=== PATIENT | female | born 1940 | race Caucasian/White ===

== ENCOUNTER 2017-06-22 16:53 | Inpatient (IN) | payer MEDICARE, OTHER ==
[~2017-06-22] VITALS: Ht 167.6 cm; Wt 84.0 kg
[~2017-06-22 16:53] MED LIST: ALBU2.5V12 NEB; BUDE10.2 IH; FURO-150 PO; GABA-338 PO; METF500T7 PO; MONT10TA21 PO; POTA8CAP9 PO; REPA0.5T PO; ROSU20TA PO; TIOT18CA7 IH
[2017-06-22] MEDS ORDERED: methylPREDNISolone sod succ 125mg/2ml vial IV ONE (17:05)
[2017-06-22] MEDS ORDERED: albuterol 2.5 MG/3 ML nebule NEB ONE (17:05)
[2017-06-22] MEDS ORDERED: normal saline 1000ML IV soln IV ONE (17:05)
[2017-06-22 17:41] LABS: BASOPHILS # (AUTO) 0.1 X10'3 (0-0.2); BASOPHILS % (AUTO) 0.4 % (0-1); EOSINOPHILS # (AUTO) 0.8 X10'3 (0-0.9); EOSINOPHILS % (AUTO) 5.4 % (0-6); HEMATOCRIT 41.1 % (35.0-45.0); HEMOGLOBIN 13.9 g/dl (12.0-16.0); LYMPHOCYTES # (AUTO) 2.5 X10'3 (1.1-4.8); LYMPHOCYTES % (AUTO) 16.3 % (21-51); MEAN CORPUSCULAR HEMOGLOBIN 30.5 PG (27.0-31.0); MEAN CORPUSCULAR HGB CONC 33.9 % (33.0-36.5); MEAN CORPUSCULAR VOLUME 89.9 FL (78-98); MEAN PLATELET VOLUME 8.1 FL (7.4-10.4); MONOCYTES # (AUTO) 2.2 X10'3 (0-0.9); MONOCYTES % (AUTO) 14.2 % (2-12); NEUTROPHILS # (AUTO) 9.7 X10'3 (1.8-7.7); NEUTROPHILS % (AUTO) 63.7 % (42-75); PLATELET COUNT 311 X10'3 (140-440); RED BLOOD COUNT 4.57 X10'6 (4.20-5.60); RED CELL DISTRIBUTION WIDTH 13.7 % (11.5-14.5); WHITE BLOOD COUNT 15.2 X10'3 (4.5-11.0)
[2017-06-22 17:56] LABS: ALANINE AMINOTRANSFERASE 31 U/L (12-78); ALBUMIN 3.4 G/DL (3.4-5.0); ALBUMIN/GLOBULIN RATIO 0.8 (1.1-1.5); ALKALINE PHOSPHATASE 111 IU/L (46-116); ANION GAP 3 (8-16); ASPARTATE AMINO TRANSFERASE 15 U/L (10-37); BILIRUBIN,TOTAL 0.6 MG/DL (0.1-1.0); BLOOD UREA NITROGEN 9 MG/DL (7-18); BUN/CREATININE RATIO 12.9 (6.6-38.0); CALCIUM 9.3 MG/DL (8.5-10.1); CHLORIDE 101 MMOL/L (99-107); GLUCOSE 93 MG/DL (70-104); POTASSIUM 3.8 MMOL/L (3.5-5.1); SODIUM 141 MMOL/L (135-145); TOTAL CARBON DIOXIDE 36.6 MMOL/L (24-32); TOTAL PROTEIN 7.7 G/DL (6.4-8.2); eGFR 81 ML/MIN
[2017-06-22] MEDS ORDERED: levoFLOXACIN-Levaquin 750MG/D5 150 ML IV ONE (18:35)
[2017-06-22] MEDS ORDERED: furosemide 10 MG/1 ML 10ml inj IV ONE (18:35)
[2017-06-22] MEDS ORDERED: morphine 2 MG/ML inj. syringe IV ONE (19:15)
[2017-06-22 20:17] LABS: CLARITY,URINE CLOUDY (Clear); COLOR,URINE YELLOW (Yellow); GLUCOSE, URINE NEGATIVE (Neg); KETONES,URINE NEGATIVE (Neg); LEUKOCYTE ESTERASE ,URINE LARGE (Neg); NITRITES, URINE NEGATIVE (Neg); OCCULT BLOOD,URINE NEGATIVE (Neg); PH,URINE 6.5 (4.8-8.0); PROTEIN,URINE NEGATIVE (Neg); UROBILINOGEN,URINE 0.2 E.U/dL (0.2-1.0)
[2017-06-22 20:19] LABS: UA COLLECTION TYPE CLN CATCH MIDSTREAM
[2017-06-22 20:32] LABS: BACTERIA,URINE 1+ /HPF (Neg); RENAL CELLS, URINE FEW /HPF; SQUAMOUS EPITHELIAL CELL,UR MODERATE /LPF (FEW); TRANSITIONAL EPI CELLS,URINE MODERATE /HPF
[2017-06-22 20:33] LABS: RBC,URINE 0-2 /HPF (0-2); WBC,URINE 20-30 /HPF (0-4)
[2017-06-22] MEDS ORDERED: ASPI-529 (20:45)
[2017-06-22] MEDS ORDERED: METF500T PO (20:52)
[2017-06-22] MEDS ORDERED: ATOR40TA PO (20:54)
[2017-06-22] MEDS ORDERED: temazepam 15mg capsule PO PRN (21:00)
[2017-06-22] MEDS ORDERED: acetaminophen 650mg rectal suppository RC PRN (21:20)
[2017-06-22] MEDS ORDERED: bisacodyl 10mg suppository rectal RC PRN (21:20)
[2017-06-22] MEDS ORDERED: diphenhydrAMINE 25mg capsule PO PRN (21:20)
[2017-06-22] MEDS ORDERED: ondansetron/PF 4mg/2ml inj IV PRN (21:20)
[2017-06-22] MEDS ORDERED: magnesium hydroxide 30ml (MOM) UD suspension PO PRN (21:20)
[2017-06-22] MEDS ORDERED: mag hydrox/Alum hydrox/simeth 30ml oral suspension PO PRN (21:20)
[2017-06-22] MEDS ORDERED: HYDROcodone/acetaminophen 10/325mg tab PO PRN (21:20)
[2017-06-22] MEDS ORDERED: acetaminophen 325mg tablet PO PRN (21:20)
[2017-06-22] MEDS ORDERED: morphine 2 MG/ML inj. syringe IV PRN ×2 (21:20)
[2017-06-22] MEDS ORDERED: diphenhydrAMINE 50 mg/ml inj IV PRN (21:20)
[2017-06-22] MEDS ORDERED: dextrose ORAL solution 15 GM/59 ML bottle PO PRN ×2 (21:25)
[2017-06-22] MEDS ORDERED: glucagon, human recombinant 1mg kit SUBCUT PRN (21:25)
[2017-06-22] MEDS ORDERED: dextrose 50%-water 50ml dispensing syringe IV PRN ×2 (21:25)
[2017-06-22] MEDS ORDERED: MESSAGE TO PHARMACY PO ONE (21:25)
[2017-06-22 21:42] LABS: HEMOGLOBIN A1C 7.3 % (4.5-6.2)
[2017-06-22 21:51] LABS: MAGNESIUM 1.7 MG/DL (1.5-2.4)
[2017-06-23 07:13] LABS: BASOPHILS % (AUTO) 0.3 % (0-1); EOSINOPHILS % (AUTO) 0 % (0-6); HEMATOCRIT 39.3 % (35.0-45.0); HEMOGLOBIN 13.3 g/dl (12.0-16.0); LYMPHOCYTES # (AUTO) 1.6 X10'3 (1.1-4.8); LYMPHOCYTES % (AUTO) 12.3 % (21-51); MEAN CORPUSCULAR HEMOGLOBIN 30.8 PG (27.0-31.0); MEAN CORPUSCULAR HGB CONC 33.9 % (33.0-36.5); MEAN CORPUSCULAR VOLUME 90.9 FL (78-98); MEAN PLATELET VOLUME 7.9 FL (7.4-10.4); MONOCYTES # (AUTO) 0.3 X10'3 (0-0.9); NEUTROPHILS # (AUTO) 11.4 X10'3 (1.8-7.7); NEUTROPHILS % (AUTO) 85.4 % (42-75); PLATELET COUNT 303 X10'3 (140-440); RED BLOOD COUNT 4.32 X10'6 (4.20-5.60); RED CELL DISTRIBUTION WIDTH 14.2 % (11.5-14.5); WHITE BLOOD COUNT 13.3 X10'3 (4.5-11.0)
[2017-06-23 07:31] LABS: ALANINE AMINOTRANSFERASE 28 U/L (12-78); ALBUMIN 2.9 G/DL (3.4-5.0); ALBUMIN/GLOBULIN RATIO 0.7 (1.1-1.5); ALKALINE PHOSPHATASE 96 IU/L (46-116); ANION GAP 6 (8-16); ASPARTATE AMINO TRANSFERASE 13 U/L (10-37); BILIRUBIN,TOTAL 0.4 MG/DL (0.1-1.0); BLOOD UREA NITROGEN 14 MG/DL (7-18); BUN/CREATININE RATIO 15.6 (6.6-38.0); CALCIUM 9.1 MG/DL (8.5-10.1); CHLORIDE 100 MMOL/L (99-107); GLUCOSE 202 MG/DL (70-104); POTASSIUM 4.4 MMOL/L (3.5-5.1); SODIUM 141 MMOL/L (135-145); TOTAL CARBON DIOXIDE 35.5 MMOL/L (24-32); eGFR 61 ML/MIN
[2017-06-23] MEDS ORDERED: methylPREDNISolone sod succ 125mg/2ml vial IV ONE (08:00)
[2017-06-23] MEDS ORDERED: non-formulary drug (Aspirin (Baby Aspirin) 1 TAB) PO SCH (08:00)
[2017-06-23] MEDS ORDERED: non-formulary drug (Atorvastatin Calcium* (Lipitor*) 1 TABLET) PO SCH (08:00)
[2017-06-23] MEDS ORDERED: furosemide 10 MG/1 ML 10ml inj IV ONE (08:00)
[2017-06-23] MEDS: levoFLOXACIN-Levaquin 750MG/D5 150 ML IV SCH (09:45)
[2017-06-23] MEDS: gabapentin 300mg capsule PO SCH ×3 (09:48→21:22)
[2017-06-23] MEDS: aspirin 81mg tab.chew PO SCH (09:48)
[2017-06-23] MEDS: atorvastatin 20mg tablet PO SCH (09:49)
[2017-06-23] MEDS: pantoprazole 40mg Tablet.DR PO SCH (09:49)
[2017-06-23] MEDS: heparin, porcine 5000 units/ml vial SQ SCH ×2 (09:51→19:49)
[2017-06-23] MEDS: docusate sod 100mg capsule PO SCH ×2 (09:52→19:47)
[2017-06-23] MEDS: montelukast 10mg tablet PO SCH (09:52)
[2017-06-23 10:00] VITALS: BP 127/68
[2017-06-23] MEDS: HYDROcodone/acetaminophen 5mg/325mg tablet PO PRN (10:07)
[2017-06-23] MEDS ORDERED: albuterol 2.5 MG/3 ML nebule NEB PRN (10:35)
[2017-06-23 14:20] VITALS: BP 116/59
[2017-06-23 14:30] VITALS: BP 109/51
[2017-06-23] MEDS: insulin Lispro (HumaLOG) vial - multi-dose SQ SCH ×2 (15:09→19:55)
[2017-06-23 20:00] VITALS: BP 125/64
[2017-06-24] VITALS: BP 123/60
[2017-06-24 05:49] LABS: BASOPHILS % (AUTO) 0.1 % (0-1); EOSINOPHILS # (AUTO) 0.1 X10'3 (0-0.9); EOSINOPHILS % (AUTO) 0.6 % (0-6); HEMATOCRIT 37.6 % (35.0-45.0); HEMOGLOBIN 12.7 g/dl (12.0-16.0); LYMPHOCYTES # (AUTO) 2.3 X10'3 (1.1-4.8); LYMPHOCYTES % (AUTO) 12.5 % (21-51); MEAN CORPUSCULAR HEMOGLOBIN 30.6 PG (27.0-31.0); MEAN CORPUSCULAR HGB CONC 33.7 % (33.0-36.5); MEAN CORPUSCULAR VOLUME 90.7 FL (78-98); MEAN PLATELET VOLUME 8.3 FL (7.4-10.4); MONOCYTES # (AUTO) 1.9 X10'3 (0-0.9); MONOCYTES % (AUTO) 10.3 % (2-12); NEUTROPHILS # (AUTO) 13.9 X10'3 (1.8-7.7); NEUTROPHILS % (AUTO) 76.5 % (42-75); PLATELET COUNT 303 X10'3 (140-440); RED BLOOD COUNT 4.15 X10'6 (4.20-5.60); RED CELL DISTRIBUTION WIDTH 13.8 % (11.5-14.5); WHITE BLOOD COUNT 18.2 X10'3 (4.5-11.0)
[2017-06-24 06:33] LABS: ALANINE AMINOTRANSFERASE 24 U/L (12-78); ALBUMIN 2.9 G/DL (3.4-5.0); ALBUMIN/GLOBULIN RATIO 0.7 (1.1-1.5); ALKALINE PHOSPHATASE 89 IU/L (46-116); ANION GAP 4 (8-16); ASPARTATE AMINO TRANSFERASE 11 U/L (10-37); BILIRUBIN,TOTAL 0.3 MG/DL (0.1-1.0); BLOOD UREA NITROGEN 21 MG/DL (7-18); BUN/CREATININE RATIO 23.3 (6.6-38.0); CALCIUM 9.1 MG/DL (8.5-10.1); CHLORIDE 101 MMOL/L (99-107); GLUCOSE 175 MG/DL (70-104); POTASSIUM 4.2 MMOL/L (3.5-5.1); SODIUM 139 MMOL/L (135-145); TOTAL CARBON DIOXIDE 34.4 MMOL/L (24-32); TOTAL PROTEIN 6.8 G/DL (6.4-8.2); eGFR 61 ML/MIN
[2017-06-24 08:00] VITALS: BP 140/77
[2017-06-24] MEDS: levoFLOXACIN-Levaquin 750MG/D5 150 ML IV SCH (09:23)
[2017-06-24] MEDS: montelukast 10mg tablet PO SCH (09:24)
[2017-06-24] MEDS: gabapentin 300mg capsule PO SCH ×3 (09:24→21:15)
[2017-06-24] MEDS: heparin, porcine 5000 units/ml vial SQ SCH ×2 (09:24→19:51)
[2017-06-24] MEDS: docusate sod 100mg capsule PO SCH ×2 (09:25→19:51)
[2017-06-24] MEDS: atorvastatin 20mg tablet PO SCH (09:25)
[2017-06-24] MEDS: aspirin 81mg tab.chew PO SCH (09:26)
[2017-06-24] MEDS: pantoprazole 40mg Tablet.DR PO SCH (09:26)
[2017-06-24] MEDS: insulin Lispro (HumaLOG) vial - multi-dose SQ SCH ×3 (09:31→19:49)
[2017-06-24 11:00] VITALS: BP 108/69
[2017-06-24] MEDS: lactobacillus rhamnosus 10,000 MMU CELLS/CAPSULE PO SCH (16:53)
[2017-06-24 20:00] VITALS: BP 109/55
[2017-06-24] MEDS: HYDROcodone/acetaminophen 5mg/325mg tablet PO PRN (21:22)
[2017-06-25] VITALS: BP 110/49
[2017-06-25 05:15] LABS: BASOPHILS # (AUTO) 0.1 X10'3 (0-0.2); BASOPHILS % (AUTO) 0.5 % (0-1); EOSINOPHILS # (AUTO) 0.8 X10'3 (0-0.9); EOSINOPHILS % (AUTO) 4.8 % (0-6); HEMATOCRIT 38.8 % (35.0-45.0); HEMOGLOBIN 12.9 g/dl (12.0-16.0); LYMPHOCYTES # (AUTO) 4.8 X10'3 (1.1-4.8); LYMPHOCYTES % (AUTO) 30.5 % (21-51); MEAN CORPUSCULAR HEMOGLOBIN 30.6 PG (27.0-31.0); MEAN CORPUSCULAR HGB CONC 33.1 % (33.0-36.5); MEAN CORPUSCULAR VOLUME 92.4 FL (78-98); MEAN PLATELET VOLUME 8.8 FL (7.4-10.4); MONOCYTES # (AUTO) 2.1 X10'3 (0-0.9); MONOCYTES % (AUTO) 13.2 % (2-12); PLATELET COUNT 318 X10'3 (140-440); RED CELL DISTRIBUTION WIDTH 14.4 % (11.5-14.5); WHITE BLOOD COUNT 15.6 X10'3 (4.5-11.0)
[2017-06-25 06:03] LABS: ALANINE AMINOTRANSFERASE 27 U/L (12-78); ALBUMIN 2.6 G/DL (3.4-5.0); ALBUMIN/GLOBULIN RATIO 0.7 (1.1-1.5); ALKALINE PHOSPHATASE 89 IU/L (46-116); ANION GAP 5 (8-16); ASPARTATE AMINO TRANSFERASE 22 U/L (10-37); BILIRUBIN,TOTAL 0.2 MG/DL (0.1-1.0); BLOOD UREA NITROGEN 23 MG/DL (7-18); BUN/CREATININE RATIO 25.6 (6.6-38.0); CALCIUM 8.7 MG/DL (8.5-10.1); CHLORIDE 103 MMOL/L (99-107); GLUCOSE 159 MG/DL (70-104); SODIUM 142 MMOL/L (135-145); TOTAL CARBON DIOXIDE 34.3 MMOL/L (24-32); TOTAL PROTEIN 6.6 G/DL (6.4-8.2); eGFR 61 ML/MIN
[2017-06-25] MEDS: levoFLOXACIN-Levaquin 750MG/D5 150 ML IV SCH (07:54)
[2017-06-25] MEDS: atorvastatin 20mg tablet PO SCH (07:55)
[2017-06-25] MEDS: montelukast 10mg tablet PO SCH (07:55)
[2017-06-25] MEDS: heparin, porcine 5000 units/ml vial SQ SCH ×2 (07:55→19:03)
[2017-06-25] MEDS: lactobacillus rhamnosus 10,000 MMU CELLS/CAPSULE PO SCH ×2 (07:55→17:30)
[2017-06-25] MEDS: gabapentin 300mg capsule PO SCH ×3 (07:55→21:12)
[2017-06-25] MEDS: aspirin 81mg tab.chew PO SCH (07:55)
[2017-06-25] MEDS: pantoprazole 40mg Tablet.DR PO SCH (07:55)
[2017-06-25] MEDS: docusate sod 100mg capsule PO SCH ×2 (07:55→19:03)
[2017-06-25 08:00] VITALS: BP 107/57
[2017-06-25] MEDS: insulin Lispro (HumaLOG) vial - multi-dose SQ SCH ×3 (08:24→19:07)
[2017-06-25 11:00] VITALS: BP 115/65
[2017-06-25] MEDS: methylPREDNISolone sod succ/PF 40mg inj. IV SCH ×2 (16:14→23:57)
[2017-06-25 20:00] VITALS: BP 129/63
[2017-06-26] VITALS: BP 128/66
[2017-06-26 05:28] LABS: BASOPHILS % (AUTO) 0.1 % (0-1); EOSINOPHILS % (AUTO) 0 % (0-6); HEMATOCRIT 41.8 % (35.0-45.0); HEMOGLOBIN 14.1 g/dl (12.0-16.0); LYMPHOCYTES # (AUTO) 1.3 X10'3 (1.1-4.8); LYMPHOCYTES % (AUTO) 11.6 % (21-51); MEAN CORPUSCULAR HEMOGLOBIN 30.7 PG (27.0-31.0); MEAN CORPUSCULAR HGB CONC 33.7 % (33.0-36.5); MEAN PLATELET VOLUME 8.5 FL (7.4-10.4); MONOCYTES # (AUTO) 0.1 X10'3 (0-0.9); MONOCYTES % (AUTO) 0.6 % (2-12); NEUTROPHILS # (AUTO) 10.2 X10'3 (1.8-7.7); NEUTROPHILS % (AUTO) 87.7 % (42-75); PLATELET COUNT 353 X10'3 (140-440); RED BLOOD COUNT 4.59 X10'6 (4.20-5.60); RED CELL DISTRIBUTION WIDTH 14.2 % (11.5-14.5); WHITE BLOOD COUNT 11.6 X10'3 (4.5-11.0)
[2017-06-26 06:21] LABS: ALANINE AMINOTRANSFERASE 33 U/L (12-78); ALBUMIN 3.1 G/DL (3.4-5.0); ALBUMIN/GLOBULIN RATIO 0.7 (1.1-1.5); ALKALINE PHOSPHATASE 106 IU/L (46-116); ANION GAP 4 (8-16); ASPARTATE AMINO TRANSFERASE 20 U/L (10-37); BILIRUBIN,TOTAL 0.2 MG/DL (0.1-1.0); BLOOD UREA NITROGEN 18 MG/DL (7-18); BUN/CREATININE RATIO 22.5 (6.6-38.0); CALCIUM 9.6 MG/DL (8.5-10.1); CHLORIDE 104 MMOL/L (99-107); GLUCOSE 224 MG/DL (70-104); POTASSIUM 4.6 MMOL/L (3.5-5.1); SODIUM 143 MMOL/L (135-145); TOTAL CARBON DIOXIDE 34.7 MMOL/L (24-32); TOTAL PROTEIN 7.4 G/DL (6.4-8.2); eGFR 70 ML/MIN
[2017-06-26] MEDS: pantoprazole 40mg Tablet.DR PO SCH (07:34)
[2017-06-26] MEDS: gabapentin 300mg capsule PO SCH ×2 (07:34→12:24)
[2017-06-26] MEDS: methylPREDNISolone sod succ/PF 40mg inj. IV SCH ×2 (07:34→16:50)
[2017-06-26] MEDS: atorvastatin 20mg tablet PO SCH (07:34)
[2017-06-26] MEDS: heparin, porcine 5000 units/ml vial SQ SCH (07:34)
[2017-06-26] MEDS: lactobacillus rhamnosus 10,000 MMU CELLS/CAPSULE PO SCH ×2 (07:35→16:50)
[2017-06-26] MEDS: montelukast 10mg tablet PO SCH (07:35)
[2017-06-26] MEDS: docusate sod 100mg capsule PO SCH (07:35)
[2017-06-26] MEDS: levoFLOXACIN-Levaquin 750MG/D5 150 ML IV SCH (07:35)
[2017-06-26] MEDS: aspirin 81mg tab.chew PO SCH (07:35)
[2017-06-26 08:00] VITALS: BP 125/68
[2017-06-26] MEDS: insulin Lispro (HumaLOG) vial - multi-dose SQ SCH ×2 (09:36→14:04)
[2017-06-26 11:00] VITALS: BP 107/57
[2017-06-26] MEDS ORDERED: PRED10TA23 PO (16:57)
[2017-06-26] MEDS ORDERED: LEVO750T21 PO (16:58)
[2017-06-26] MEDS ORDERED: FURO-150 PO (16:59)
[2017-06-27] MEDS ORDERED: levoFLOXACIN 750MG TABLET PO SCH (11:00)
== END 2017-06-26 18:28 | disposition home or self-care (01) | DRG 193 ==
LOC: ER 16:54 → ED HOLD 21:22 → SUR 3N 06-23 08:21
PROVIDERS: ADMIT Family Medicine; ATTEND Internal Medicine
PROC: 0W993ZZ Drainage of Right Pleural Cavity, Percutaneous Approach (ICD-10-PCS; principal; 2017-06-23)
DX: J18.9 Pneumonia, unspecified organism (principal); I50.23 Acute on chronic systolic (congestive) heart failure; J96.21 Acute and chronic respiratory failure with hypoxia; J91.8 Pleural effusion in other conditions classified elsewhere; N39.0 Urinary tract infection, site not specified; J44.1 Chronic obstructive pulmonary disease with (acute) exacerbation; J44.0 Chronic obstructive pulmonary disease with (acute) lower respiratory infection; E11.65 Type 2 diabetes mellitus with hyperglycemia; Z99.81 Dependence on supplemental oxygen; Z79.51 Long term (current) use of inhaled steroids; Z79.82 Long term (current) use of aspirin; Z79.84 Long term (current) use of oral hypoglycemic drugs; Z79.899 Other long term (current) drug therapy; Z88.7 Allergy status to serum and vaccine
CPT/HCPCS: 32555; 36415; 71045; 71046; 71250; 80053; 81001; 82948; 83036; 83605; 83735; 83880; 85025; 87040; 87070; 87088; 87502; 87503; 88108; 88305; 93005; 94640; 94667; 94760; 96365; 96375; 97110; 97116; 97162; 99285; J1644; J1940; J1956; J2270; J2920; J2930; J7030

== ENCOUNTER 2017-07-05 10:08 | Inpatient (IN) | payer MEDICARE, OTHER ==
[~2017-07-05] VITALS: Ht 167.6 cm; Wt 87.5 kg
[~2017-07-05 10:08] MED LIST changes: +ASPI-529; +ATOR40TA PO; +METF500T PO; -METF500T7 PO; +PRED10TA23 PO; -REPA0.5T PO; -ROSU20TA PO
[2017-07-05] MEDS ORDERED: normal saline 1000ML IV soln IVB ONE (10:50)
[2017-07-05] MEDS ORDERED: normal saline 1000ml 1,000 ML IV ONE (10:50)
[2017-07-05] MEDS ORDERED: methylPREDNISolone sod succ 125mg/2ml vial IV ONE (11:10)
[2017-07-05] MEDS ORDERED: ipratropium/albuterol 3ml nebule NEB ONE (11:10)
[2017-07-05 11:25] LABS: BASOPHILS % (AUTO) 0.2 % (0-1); EOSINOPHILS # (AUTO) 0.4 X10'3 (0-0.9); EOSINOPHILS % (AUTO) 1.5 % (0-6); HEMATOCRIT 42.9 % (35.0-45.0); HEMOGLOBIN 14.4 g/dl (12.0-16.0); LYMPHOCYTES # (AUTO) 2.2 X10'3 (1.1-4.8); MEAN CORPUSCULAR HEMOGLOBIN 30.6 PG (27.0-31.0); MEAN CORPUSCULAR HGB CONC 33.5 % (33.0-36.5); MEAN CORPUSCULAR VOLUME 91.3 FL (78-98); MEAN PLATELET VOLUME 7.8 FL (7.4-10.4); MONOCYTES # (AUTO) 2.1 X10'3 (0-0.9); MONOCYTES % (AUTO) 8.5 % (2-12); NEUTROPHILS # (AUTO) 20.1 X10'3 (1.8-7.7); NEUTROPHILS % (AUTO) 80.8 % (42-75); PLATELET COUNT 336 X10'3 (140-440); RED CELL DISTRIBUTION WIDTH 14.3 % (11.5-14.5); WHITE BLOOD COUNT 24.8 X10'3 (4.5-11.0)
[2017-07-05] MEDS ORDERED: vancomycin/NS 1 GM ADD-VANTAGE 250 ML IV ONE (11:40)
[2017-07-05] MEDS ORDERED: cefepime 1GM/NS ADD-VANTAGE 100 ML IV ONE (11:40)
[2017-07-05] MEDS ORDERED: azithromycin/NS 500mg/250ml 250 ML IV ONE (11:40)
[2017-07-05 11:41] LABS: ALANINE AMINOTRANSFERASE 22 U/L (12-78); ALBUMIN 2.8 G/DL (3.4-5.0); ALBUMIN/GLOBULIN RATIO 0.7 (1.1-1.5); ALKALINE PHOSPHATASE 84 IU/L (46-116); ANION GAP -1 (8-16); ASPARTATE AMINO TRANSFERASE 11 U/L (10-37); BILIRUBIN,TOTAL 0.8 MG/DL (0.1-1.0); BLOOD UREA NITROGEN 13 MG/DL (7-18); BUN/CREATININE RATIO 16.3 (6.6-38.0); CALCIUM 9.3 MG/DL (8.5-10.1); CHLORIDE 99 MMOL/L (99-107); GLUCOSE 187 MG/DL (70-104); MAGNESIUM 1.4 MG/DL (1.5-2.4); PHOSPHORUS 3.4 MG/DL (2.3-4.5); POTASSIUM 3.6 MMOL/L (3.5-5.1); SODIUM 138 MMOL/L (135-145); TOTAL CARBON DIOXIDE 39.5 MMOL/L (24-32); TOTAL PROTEIN 6.7 G/DL (6.4-8.2); eGFR 70 ML/MIN
[2017-07-05 11:51] LABS: PARTIAL THROMBOPLASTIN TIME 24 SECONDS (22-32); PROTHROMBIN TIME 10.7 SECONDS (9.0-12.0)
[2017-07-05] MEDS ORDERED: magnesium 2GM in 50ml NS 50 ML IV ONE (12:20)
[2017-07-05] MEDS ORDERED: ipratropium/albuterol 3ml nebule NEB PRN (12:25)
[2017-07-05] MEDS ORDERED: acetaminophen 325mg tablet PO PRN (12:25)
[2017-07-05] MEDS ORDERED: magnesium hydroxide 30ml (MOM) UD suspension PO PRN (12:25)
[2017-07-05] MEDS ORDERED: ondansetron/PF 4mg/2ml inj IV PRN (12:25)
[2017-07-05] MEDS ORDERED: mag hydrox/Alum hydrox/simeth 30ml oral suspension PO PRN (12:25)
[2017-07-05] MEDS ORDERED: morphine 2 MG/ML inj. syringe IV PRN ×2 (12:25)
[2017-07-05] MEDS: gabapentin 300mg capsule PO SCH ×2 (13:04→20:51)
[2017-07-05] MEDS ORDERED: iohexol 300mg/ml 100ml inj. ONE (13:09)
[2017-07-05] MEDS: vancomycin/NS 1 GM ADD-VANTAGE 250 ML IV SCH ×2 (14:28→16:46)
[2017-07-05 15:10] VITALS: BP 108/59
[2017-07-05] MEDS ORDERED: dextrose ORAL solution 15 GM/59 ML bottle PO PRN ×2 (15:45)
[2017-07-05] MEDS ORDERED: glucagon, human recombinant 1mg kit SUBCUT PRN (15:45)
[2017-07-05] MEDS ORDERED: dextrose 50%-water 50ml dispensing syringe IV PRN ×2 (15:45)
[2017-07-05] MEDS ORDERED: MESSAGE TO PHARMACY PO ONE (15:45)
[2017-07-05] MEDS: insulin Lispro (HumaLOG) vial - multi-dose SQ SCH ×3 (17:03→21:06)
[2017-07-05] MEDS: cefepime 1GM/100ML NS ADD-VANTAGE BAG IV SCH (19:00)
[2017-07-05 20:00] VITALS: BP 121/62
[2017-07-05] MEDS: ipratropium 0.5 MG/2.5ML nebule IH SCH ×2 (20:00→20:16)
[2017-07-05] MEDS: methylPREDNISolone sod succ 125mg/2ml vial IV SCH (20:51)
[2017-07-05] MEDS: insulin glargine (Lantus) pen - multi-dose SQ SCH (21:06)
[2017-07-06] VITALS (7 sets, daily range): BP systolic 104–148; BP diastolic 42–87
[2017-07-06] MEDS: cefepime 1GM/100ML NS ADD-VANTAGE BAG IV SCH ×3 (00:14→16:16)
[2017-07-06] MEDS: ipratropium 0.5 MG/2.5ML nebule IH SCH ×4 (02:22→20:48)
[2017-07-06] MEDS ORDERED: vancomycin/NS 1 GM ADD-VANTAGE 250 ML IV SCH (05:00)
[2017-07-06 05:58] LABS: BASOPHILS % (AUTO) 0 % (0-1); EOSINOPHILS % (AUTO) 0 % (0-6); HEMATOCRIT 40.9 % (35.0-45.0); HEMOGLOBIN 13.7 g/dl (12.0-16.0); LYMPHOCYTES # (AUTO) 1.5 X10'3 (1.1-4.8); LYMPHOCYTES % (AUTO) 6.5 % (21-51); MEAN CORPUSCULAR HEMOGLOBIN 30.4 PG (27.0-31.0); MEAN CORPUSCULAR HGB CONC 33.6 % (33.0-36.5); MEAN CORPUSCULAR VOLUME 90.6 FL (78-98); MEAN PLATELET VOLUME 8.3 FL (7.4-10.4); MONOCYTES # (AUTO) 0.4 X10'3 (0-0.9); MONOCYTES % (AUTO) 1.6 % (2-12); NEUTROPHILS % (AUTO) 91.9 % (42-75); PLATELET COUNT 349 X10'3 (140-440); RED BLOOD COUNT 4.52 X10'6 (4.20-5.60); RED CELL DISTRIBUTION WIDTH 13.8 % (11.5-14.5); WHITE BLOOD COUNT 23.9 X10'3 (4.5-11.0)
[2017-07-06 06:21] LABS: INR 1.1 INR; PARTIAL THROMBOPLASTIN TIME 25 SECONDS (22-32); PROTHROMBIN TIME 10.9 SECONDS (9.0-12.0)
[2017-07-06 06:31] LABS: ALANINE AMINOTRANSFERASE 24 U/L (12-78); ALBUMIN 2.7 G/DL (3.4-5.0); ALBUMIN/GLOBULIN RATIO 0.7 (1.1-1.5); ALKALINE PHOSPHATASE 77 IU/L (46-116); ANION GAP 5 (8-16); ASPARTATE AMINO TRANSFERASE 12 U/L (10-37); BILIRUBIN,TOTAL 0.4 MG/DL (0.1-1.0); BLOOD UREA NITROGEN 15 MG/DL (7-18); BUN/CREATININE RATIO 18.8 (6.6-38.0); CALCIUM 9.1 MG/DL (8.5-10.1); CHLORIDE 100 MMOL/L (99-107); CHOL/HDL RATIO 2.5 (0.00-4.99); CHOLESTEROL 154 MG/DL (0-200); GLUCOSE 233 MG/DL (70-104); HDL CHOLESTEROL 61 MG/DL (35-60); LDL CHOLESTEROL 76 MG/DL (50-100); POTASSIUM 3.9 MMOL/L (3.5-5.1); SODIUM 140 MMOL/L (135-145); TOTAL PROTEIN 6.5 G/DL (6.4-8.2); TRIGLYCERIDES 58 MG/DL (20-135); eGFR 70 ML/MIN
[2017-07-06] MEDS: gabapentin 300mg capsule PO SCH ×3 (07:45→21:20)
[2017-07-06] MEDS: methylPREDNISolone sod succ 125mg/2ml vial IV SCH ×2 (07:45→19:03)
[2017-07-06] MEDS: montelukast 10mg tablet PO SCH (07:45)
[2017-07-06] MEDS: MESSAGE TO PHARMACY PO SCH (07:46)
[2017-07-06] MEDS: atorvastatin 20mg tablet PO SCH (07:49)
[2017-07-06] MEDS: fluticasone/vilanterol 200mcg/25mcg inhaler IH SCH (08:00)
[2017-07-06] MEDS: enoxaparin 40mg/0.4ml syringe SQ SCH (08:00)
[2017-07-06] MEDS: azithromycin/NS 500mg/250ml 250 ML IV SCH (08:54)
[2017-07-06] MEDS: insulin Lispro (HumaLOG) vial - multi-dose SQ SCH ×4 (09:23→21:20)
[2017-07-06] MEDS ORDERED: tPA-cathflo 2 MG/2 ml IV flush ONE (11:21)
[2017-07-06] MEDS ORDERED: tPA-cathflo 2 MG/2 ml IV flush IVF ONE (12:50)
[2017-07-06 13:41] LABS: ALBUMIN,BODY FLUID 1.6 G/DL; GLUCOSE,BODY FLUID 279 MG/DL; LDH,BODY FLUID 284 U/L; LIPASE,BODY FLUID 23 U/L; TOTAL PROTEIN,BODY FLUID 3.2 G/DL
[2017-07-06 13:54] LABS: BASOPHILS,BODY FLUID 2 %; EOSINOPHILS,BODY FLUID 11 %; LYMPHOCYTES,BODY FLUID 33 %; MONOCYTES,BODY FLUID 5 %; NEUTROPHILS,BODY FLUID 49 %
[2017-07-06 13:55] LABS: BFAPPEAR CLOUDY
[2017-07-06 13:56] LABS: BF RBC COUNT 6650 /CU MM; BF WBC COUNT 7525 /CU MM (0-1000); BFCOLOR AMBER; BFVOLUME 60 ML
[2017-07-06] MEDS: vancomycin inj 1,250 MG in normal saline 250ml IV soln 250 ML IV SCH (17:12)
[2017-07-06] MEDS: insulin glargine (Lantus) pen - multi-dose SQ SCH (21:18)
[2017-07-07] MEDS: cefepime 1GM/100ML NS ADD-VANTAGE BAG IV SCH ×4 (00:15→23:23)
[2017-07-07] MEDS: ipratropium 0.5 MG/2.5ML nebule IH SCH ×4 (02:51→20:55)
[2017-07-07] MEDS ORDERED: VANCOMYCIN LEVEL IV ONE (04:30)
[2017-07-07] MEDS: vancomycin inj 1,250 MG in normal saline 250ml IV soln 250 ML IV SCH ×2 (05:35→17:38)
[2017-07-07 06:03] LABS: BASOPHILS # (AUTO) 0.1 X10'3 (0-0.2); BASOPHILS % (AUTO) 0.4 % (0-1); EOSINOPHILS % (AUTO) 0 % (0-6); HEMOGLOBIN 13.1 g/dl (12.0-16.0); LYMPHOCYTES # (AUTO) 1.4 X10'3 (1.1-4.8); LYMPHOCYTES % (AUTO) 4.9 % (21-51); MEAN CORPUSCULAR HEMOGLOBIN 30.9 PG (27.0-31.0); MEAN CORPUSCULAR HGB CONC 34.4 % (33.0-36.5); MEAN CORPUSCULAR VOLUME 89.8 FL (78-98); MEAN PLATELET VOLUME 8.4 FL (7.4-10.4); MONOCYTES # (AUTO) 0.9 X10'3 (0-0.9); NEUTROPHILS # (AUTO) 26.8 X10'3 (1.8-7.7); NEUTROPHILS % (AUTO) 91.7 % (42-75); PLATELET COUNT 353 X10'3 (140-440); RED BLOOD COUNT 4.23 X10'6 (4.20-5.60); RED CELL DISTRIBUTION WIDTH 14.2 % (11.5-14.5)
[2017-07-07 06:20] LABS: WHITE BLOOD COUNT 29.2 X10'3 (4.5-11.0)
[2017-07-07 06:41] LABS: ALANINE AMINOTRANSFERASE 16 U/L (12-78); ALBUMIN 2.4 G/DL (3.4-5.0); ALBUMIN/GLOBULIN RATIO 0.7 (1.1-1.5); ALKALINE PHOSPHATASE 66 IU/L (46-116); ANION GAP 5 (8-16); ASPARTATE AMINO TRANSFERASE 11 U/L (10-37); BILIRUBIN,TOTAL 0.3 MG/DL (0.1-1.0); BLOOD UREA NITROGEN 19 MG/DL (7-18); CALCIUM 8.8 MG/DL (8.5-10.1); CHLORIDE 103 MMOL/L (99-107); CREATININE 0.73 MG/DL (0.40-0.90); GLUCOSE 199 MG/DL (70-104); POTASSIUM 4.1 MMOL/L (3.5-5.1); SODIUM 142 MMOL/L (135-145); TOTAL CARBON DIOXIDE 33.8 MMOL/L (24-32); eGFR 78 ML/MIN
[2017-07-07 07:00] VITALS: BP 147/73
[2017-07-07] MEDS: methylPREDNISolone sod succ 125mg/2ml vial IV SCH ×2 (07:04→21:12)
[2017-07-07] MEDS: atorvastatin 20mg tablet PO SCH (07:05)
[2017-07-07] MEDS: montelukast 10mg tablet PO SCH (07:05)
[2017-07-07] MEDS: enoxaparin 40mg/0.4ml syringe SQ SCH (07:05)
[2017-07-07] MEDS: lactobacillus rhamnosus 10,000 MMU CELLS/CAPSULE PO SCH ×2 (07:05→17:06)
[2017-07-07] MEDS: gabapentin 300mg capsule PO SCH ×3 (07:05→21:11)
[2017-07-07 07:43] LABS: LYMPHOCYTES % (MANUAL) 5 % (21-51); NEUTROPHILS % (MANUAL) 95 % (42-75); TOTAL CELLS COUNTED 100
[2017-07-07 07:44] LABS: PLATELET ESTIMATE NORMAL
[2017-07-07] MEDS: MESSAGE TO PHARMACY PO SCH (08:00)
[2017-07-07] MEDS: fluticasone/vilanterol 200mcg/25mcg inhaler IH SCH (08:00)
[2017-07-07] MEDS: azithromycin/NS 500mg/250ml 250 ML IV SCH (08:09)
[2017-07-07] MEDS: insulin Lispro (HumaLOG) vial - multi-dose SQ SCH ×3 (08:22→19:22)
[2017-07-07 11:00] VITALS: BP 129/81
[2017-07-07 19:00] VITALS: BP 122/61
[2017-07-07] MEDS: insulin glargine (Lantus) pen - multi-dose SQ SCH (21:24)
[2017-07-08] VITALS: BP 111/58
[2017-07-08] MEDS: ipratropium 0.5 MG/2.5ML nebule IH SCH ×4 (02:39→20:39)
[2017-07-08] MEDS ORDERED: VANCOMYCIN LEVEL IV ONE (04:30)
[2017-07-08] MEDS: vancomycin inj 1,250 MG in normal saline 250ml IV soln 250 ML IV SCH (05:32)
[2017-07-08 05:49] LABS: BASOPHILS % (AUTO) 0.2 % (0-1); EOSINOPHILS # (AUTO) 0.3 X10'3 (0-0.9); EOSINOPHILS % (AUTO) 1.4 % (0-6); HEMATOCRIT 39.9 % (35.0-45.0); HEMOGLOBIN 13.3 g/dl (12.0-16.0); LYMPHOCYTES # (AUTO) 1.8 X10'3 (1.1-4.8); LYMPHOCYTES % (AUTO) 8.8 % (21-51); MEAN CORPUSCULAR HEMOGLOBIN 30.3 PG (27.0-31.0); MEAN CORPUSCULAR HGB CONC 33.4 % (33.0-36.5); MEAN CORPUSCULAR VOLUME 90.6 FL (78-98); MEAN PLATELET VOLUME 8.3 FL (7.4-10.4); MONOCYTES # (AUTO) 0.5 X10'3 (0-0.9); MONOCYTES % (AUTO) 2.2 % (2-12); NEUTROPHILS # (AUTO) 18.1 X10'3 (1.8-7.7); NEUTROPHILS % (AUTO) 87.4 % (42-75); PLATELET COUNT 380 X10'3 (140-440); RED CELL DISTRIBUTION WIDTH 14.3 % (11.5-14.5); WHITE BLOOD COUNT 20.7 X10'3 (4.5-11.0)
[2017-07-08 06:11] LABS: ALANINE AMINOTRANSFERASE 24 U/L (12-78); ALBUMIN 2.4 G/DL (3.4-5.0); ALBUMIN/GLOBULIN RATIO 0.7 (1.1-1.5); ALKALINE PHOSPHATASE 72 IU/L (46-116); ANION GAP 5 (8-16); ASPARTATE AMINO TRANSFERASE 14 U/L (10-37); BILIRUBIN,TOTAL 0.3 MG/DL (0.1-1.0); BLOOD UREA NITROGEN 21 MG/DL (7-18); CALCIUM 8.9 MG/DL (8.5-10.1); CHLORIDE 105 MMOL/L (99-107); CREATININE 0.84 MG/DL (0.40-0.90); GLUCOSE 196 MG/DL (70-104); POTASSIUM 4.8 MMOL/L (3.5-5.1); SODIUM 144 MMOL/L (135-145); TOTAL CARBON DIOXIDE 33.6 MMOL/L (24-32); eGFR 66 ML/MIN
[2017-07-08 08:00] VITALS: BP 151/73
[2017-07-08] MEDS: fluticasone/vilanterol 200mcg/25mcg inhaler IH SCH (08:36)
[2017-07-08] MEDS: methylPREDNISolone sod succ 125mg/2ml vial IV SCH (08:45)
[2017-07-08] MEDS: atorvastatin 20mg tablet PO SCH (08:45)
[2017-07-08] MEDS: montelukast 10mg tablet PO SCH (08:46)
[2017-07-08] MEDS: gabapentin 300mg capsule PO SCH ×3 (08:46→21:00)
[2017-07-08] MEDS: cefepime 1GM/100ML NS ADD-VANTAGE BAG IV SCH (08:46)
[2017-07-08] MEDS: enoxaparin 40mg/0.4ml syringe SQ SCH (08:46)
[2017-07-08] MEDS: lactobacillus rhamnosus 10,000 MMU CELLS/CAPSULE PO SCH ×2 (08:57→17:32)
[2017-07-08] MEDS ORDERED: lactulose 20gm/30ml cup PO ONE (09:10)
[2017-07-08] MEDS: azithromycin/NS 500mg/250ml 250 ML IV SCH (09:41)
[2017-07-08] MEDS: insulin Lispro (HumaLOG) vial - multi-dose SQ SCH ×3 (09:47→19:00)
[2017-07-08 11:00] VITALS: BP 151/71
[2017-07-08 19:00] VITALS: BP 129/61
[2017-07-08] MEDS: insulin glargine (Lantus) pen - multi-dose SQ SCH (21:02)
[2017-07-09] VITALS: BP 129/65
[2017-07-09] MEDS: ipratropium 0.5 MG/2.5ML nebule IH SCH ×4 (02:00→20:47)
[2017-07-09 05:32] LABS: BASOPHILS # (AUTO) 0.2 X10'3 (0-0.2); BASOPHILS % (AUTO) 0.7 % (0-1); EOSINOPHILS # (AUTO) 0.4 X10'3 (0-0.9); EOSINOPHILS % (AUTO) 1.8 % (0-6); HEMATOCRIT 40.4 % (35.0-45.0); HEMOGLOBIN 13.6 g/dl (12.0-16.0); LYMPHOCYTES # (AUTO) 4.4 X10'3 (1.1-4.8); LYMPHOCYTES % (AUTO) 21.2 % (21-51); MEAN CORPUSCULAR HEMOGLOBIN 30.6 PG (27.0-31.0); MEAN CORPUSCULAR HGB CONC 33.7 % (33.0-36.5); MEAN CORPUSCULAR VOLUME 90.8 FL (78-98); MEAN PLATELET VOLUME 8.2 FL (7.4-10.4); MONOCYTES % (AUTO) 9.7 % (2-12); NEUTROPHILS # (AUTO) 13.9 X10'3 (1.8-7.7); NEUTROPHILS % (AUTO) 66.6 % (42-75); PLATELET COUNT 381 X10'3 (140-440); RED BLOOD COUNT 4.45 X10'6 (4.20-5.60); RED CELL DISTRIBUTION WIDTH 14.6 % (11.5-14.5); WHITE BLOOD COUNT 20.9 X10'3 (4.5-11.0)
[2017-07-09 05:59] LABS: ALANINE AMINOTRANSFERASE 39 U/L (12-78); ALBUMIN 2.4 G/DL (3.4-5.0); ALBUMIN/GLOBULIN RATIO 0.7 (1.1-1.5); ALKALINE PHOSPHATASE 69 IU/L (46-116); ANION GAP 7 (8-16); ASPARTATE AMINO TRANSFERASE 20 U/L (10-37); BILIRUBIN,TOTAL 0.3 MG/DL (0.1-1.0); BLOOD UREA NITROGEN 20 MG/DL (7-18); BUN/CREATININE RATIO 28.2 (6.6-38.0); CALCIUM 8.8 MG/DL (8.5-10.1); CHLORIDE 106 MMOL/L (99-107); CREATININE 0.71 MG/DL (0.40-0.90); GLUCOSE 137 MG/DL (70-104); POTASSIUM 4.2 MMOL/L (3.5-5.1); SODIUM 145 MMOL/L (135-145); TOTAL CARBON DIOXIDE 32.4 MMOL/L (24-32); TOTAL PROTEIN 5.8 G/DL (6.4-8.2); eGFR 80 ML/MIN
[2017-07-09] MEDS: CefTRIAXone 2gm/NS 100ml IVPB 100 ML IV SCH (07:11)
[2017-07-09 08:00] VITALS: BP 120/59
[2017-07-09] MEDS: insulin Lispro (HumaLOG) vial - multi-dose SQ SCH ×3 (08:37→18:29)
[2017-07-09] MEDS: enoxaparin 40mg/0.4ml syringe SQ SCH (08:41)
[2017-07-09] MEDS: azithromycin/NS 500mg/250ml 250 ML IV SCH (08:42)
[2017-07-09] MEDS: atorvastatin 20mg tablet PO SCH (08:46)
[2017-07-09] MEDS: montelukast 10mg tablet PO SCH (08:46)
[2017-07-09] MEDS: gabapentin 300mg capsule PO SCH ×3 (08:46→21:07)
[2017-07-09] MEDS: predniSONE 20 mg tablet PO SCH (08:47)
[2017-07-09] MEDS: fluticasone/vilanterol 200mcg/25mcg inhaler IH SCH (08:48)
[2017-07-09] MEDS: lactobacillus rhamnosus 10,000 MMU CELLS/CAPSULE PO SCH ×2 (08:50→16:49)
[2017-07-09] MEDS ORDERED: mineral oil 133ml enema RC STA (10:10)
[2017-07-09 11:30] VITALS: BP 122/59
[2017-07-09 19:00] VITALS: BP 115/52
[2017-07-09] MEDS: insulin glargine (Lantus) pen - multi-dose SQ SCH (21:09)
[2017-07-10] VITALS: BP 130/53
[2017-07-10] MEDS: ipratropium 0.5 MG/2.5ML nebule IH SCH ×2 (02:39→08:00)
[2017-07-10 05:29] LABS: BASOPHILS # (AUTO) 0.1 X10'3 (0-0.2); BASOPHILS % (AUTO) 0.8 % (0-1); EOSINOPHILS # (AUTO) 0.9 X10'3 (0-0.9); HEMATOCRIT 37.4 % (35.0-45.0); HEMOGLOBIN 12.8 g/dl (12.0-16.0); LYMPHOCYTES # (AUTO) 4.5 X10'3 (1.1-4.8); LYMPHOCYTES % (AUTO) 23.8 % (21-51); MEAN CORPUSCULAR HGB CONC 34.3 % (33.0-36.5); MEAN CORPUSCULAR VOLUME 90.4 FL (78-98); MEAN PLATELET VOLUME 8.1 FL (7.4-10.4); MONOCYTES # (AUTO) 1.8 X10'3 (0-0.9); MONOCYTES % (AUTO) 9.4 % (2-12); NEUTROPHILS # (AUTO) 11.5 X10'3 (1.8-7.7); PLATELET COUNT 359 X10'3 (140-440); RED BLOOD COUNT 4.14 X10'6 (4.20-5.60); RED CELL DISTRIBUTION WIDTH 14.4 % (11.5-14.5); WHITE BLOOD COUNT 18.8 X10'3 (4.5-11.0)
[2017-07-10 06:19] LABS: ALANINE AMINOTRANSFERASE 30 U/L (12-78); ALBUMIN 2.3 G/DL (3.4-5.0); ALBUMIN/GLOBULIN RATIO 0.7 (1.1-1.5); ALKALINE PHOSPHATASE 66 IU/L (46-116); ANION GAP 5 (8-16); ASPARTATE AMINO TRANSFERASE 14 U/L (10-37); BILIRUBIN,TOTAL 0.2 MG/DL (0.1-1.0); BLOOD UREA NITROGEN 22 MG/DL (7-18); BUN/CREATININE RATIO 31.9 (6.6-38.0); CALCIUM 9.1 MG/DL (8.5-10.1); CHLORIDE 105 MMOL/L (99-107); CREATININE 0.69 MG/DL (0.40-0.90); GLUCOSE 124 MG/DL (70-104); SODIUM 145 MMOL/L (135-145); TOTAL CARBON DIOXIDE 35.3 MMOL/L (24-32); TOTAL PROTEIN 5.5 G/DL (6.4-8.2); eGFR 83 ML/MIN
[2017-07-10] MEDS ORDERED: azithromycin 250mg tablet PO SCH (08:00)
[2017-07-10] MEDS: CefTRIAXone 2gm/NS 100ml IVPB 100 ML IV SCH (08:29)
[2017-07-10] MEDS ORDERED: LEVO750T46 PO (08:29)
[2017-07-10] MEDS ORDERED: PRED20TA PO (08:29)
[2017-07-10] MEDS: montelukast 10mg tablet PO SCH (08:33)
[2017-07-10] MEDS: gabapentin 300mg capsule PO SCH (08:33)
[2017-07-10] MEDS: predniSONE 20 mg tablet PO SCH (08:33)
[2017-07-10] MEDS: lactobacillus rhamnosus 10,000 MMU CELLS/CAPSULE PO SCH (08:33)
[2017-07-10] MEDS: enoxaparin 40mg/0.4ml syringe SQ SCH (08:33)
[2017-07-10] MEDS: insulin Lispro (HumaLOG) vial - multi-dose SQ SCH (08:37)
[2017-07-10] MEDS: fluticasone/vilanterol 200mcg/25mcg inhaler IH SCH (09:48)
== END 2017-07-10 11:00 | disposition home or self-care (01) | DRG 177 ==
LOC: ER 10:09 → ED HOLD 12:24 → EDBEDREQ 13:44 → SUR 3N 15:05
PROVIDERS: ADMIT Family Medicine; ATTEND Family Medicine
PROC: BW241ZZ Computerized Tomography (CT Scan) of Chest and Abdomen using Low Osmolar Contrast (ICD-10-PCS; 2017-07-05)
PROC: 0W9930Z Drainage of Right Pleural Cavity with Drainage Device, Percutaneous Approach (ICD-10-PCS; principal; 2017-07-06)
PROC: 3E0L3GC Introduction of Other Therapeutic Substance into Pleural Cavity, Percutaneous Approach (ICD-10-PCS; 2017-07-06)
DX: J86.9 Pyothorax without fistula (principal); J18.9 Pneumonia, unspecified organism; J96.90 Respiratory failure, unspecified, unspecified whether with hypoxia or hypercapnia; J44.0 Chronic obstructive pulmonary disease with (acute) lower respiratory infection; E11.51 Type 2 diabetes mellitus with diabetic peripheral angiopathy without gangrene; I10 Essential (primary) hypertension; E78.5 Hyperlipidemia, unspecified; E83.42 Hypomagnesemia; K76.0 Fatty (change of) liver, not elsewhere classified; Y95 Nosocomial condition; Z96.653 Presence of artificial knee joint, bilateral; Z99.81 Dependence on supplemental oxygen; Z90.710 Acquired absence of both cervix and uterus; Z90.722 Acquired absence of ovaries, bilateral; Z90.49 Acquired absence of other specified parts of digestive tract; Z90.81 Acquired absence of spleen; Z79.51 Long term (current) use of inhaled steroids; Z79.82 Long term (current) use of aspirin; Z79.84 Long term (current) use of oral hypoglycemic drugs; Z79.899 Other long term (current) drug therapy; Z88.7 Allergy status to serum and vaccine; Z88.8 Allergy status to other drugs, medicaments and biological substances; Z85.43 Personal history of malignant neoplasm of ovary; Z87.891 Personal history of nicotine dependence
CPT/HCPCS: 32557; 36415; 71046; 71260; 80053; 80061; 80202; 82042; 82945; 82948; 83036; 83605; 83615; 83690; 83735; 84100; 84145; 84157; 84484; 85025; 85610; 85730; 87040; 87070; 88108; 88305; 89051; 93005; 94640; 94760; 96361; 96365; 96375; 99285; A6223; A6257; A6402; A6449; C1729; J0456; J0692; J0696; J1650; J1815; J2270; J2930; J2997; J3370; J3475; J7030; J7512; Q9967

== ENCOUNTER 2022-09-25 06:36 | Emergency (ER) | payer BC, MEDICAID ==
[~2022-09-25] VITALS: Ht 165.1 cm; Wt 93.6 kg
[~2022-09-25 06:36] MED LIST changes: -ALBU2.5V12 NEB; +ASPI-1265 PO; -ASPI-529; -BUDE10.2 IH; -GABA-338 PO; +GABA-530 PO; +MONT-48 PO; -MONT10TA21 PO; -POTA8CAP9 PO; -PRED10TA23 PO
[2022-09-25] MEDS ORDERED: methylPREDNISolone sod succ 125mg/2ml vial IV ONE (06:45)
[2022-09-25] MEDS ORDERED: magnesium 2GM in 50ml NS 50 ML IV ONE (06:45)
--- NOTE | 2022-09-25 07:09 | NUR ---
BLOOD SENT TO LAB.
[2022-09-25 07:32] LABS: BASOPHILS # (AUTO) 0.1 X10'3 (0-0.2); BASOPHILS % (AUTO) 0.9 % (0-1); EOSINOPHILS # (AUTO) 0.6 X10'3 (0-0.9); EOSINOPHILS % (AUTO) 3.8 % (0-6); HEMATOCRIT 37.4 % (35.0-45.0); HEMOGLOBIN 11.8 g/dl (12.0-16.0); LYMPHOCYTES # (AUTO) 4.3 X10'3 (1.1-4.8); LYMPHOCYTES % (AUTO) 26.4 % (21-51); MEAN CORPUSCULAR HEMOGLOBIN 28.7 PG (27.0-31.0); MEAN CORPUSCULAR HGB CONC 31.5 g/dL (33.0-36.5); MEAN CORPUSCULAR VOLUME 91.3 FL (78-98); MEAN PLATELET VOLUME 8.2 FL (7.4-10.4); MONOCYTES # (AUTO) 2.2 X10'3 (0-0.9); MONOCYTES % (AUTO) 13.4 % (2-12); NEUTROPHILS # (AUTO) 8.9 X10'3 (1.8-7.7); NEUTROPHILS % (AUTO) 55.5 % (42-75); PLATELET COUNT 367 X10'3 (140-440); RED BLOOD COUNT 4.09 X10'6 (4.20-5.60); RED CELL DISTRIBUTION WIDTH 14.9 % (11.5-14.5); WHITE BLOOD COUNT 16.1 X10'3 (4.5-11.0)
[2022-09-25 07:40] LABS: ALANINE AMINOTRANSFERASE 28 U/L (12-78); ALBUMIN/GLOBULIN RATIO 0.8 (1.1-1.5); ALKALINE PHOSPHATASE 91 IU/L (46-116); ANION GAP 7 (8-16); ASPARTATE AMINO TRANSFERASE 25 U/L (10-37); BILIRUBIN,TOTAL 0.3 MG/DL (0.1-1.0); BLOOD UREA NITROGEN 20 MG/DL (7-18); BUN/CREATININE RATIO 21.5 (10.0-20.0); CALCIUM 9.9 MG/DL (8.5-10.1); CHLORIDE 104 MMOL/L (99-107); CREATININE 0.93 MG/DL (0.40-0.90); GLUCOSE 202 MG/DL (70-104); POTASSIUM 3.8 MMOL/L (3.5-5.1); SODIUM 143 MMOL/L (135-145); TOTAL PROTEIN 6.7 G/DL (6.4-8.2); eGFR 58 ML/MIN
[2022-09-25 07:47] LABS: MAGNESIUM 1.9 MG/DL (1.5-2.4)
--- NOTE | 2022-09-25 08:13 | NUR ---
Daughter at bedside, no reported discomfort,we will monitor.
[2022-09-25] MEDS ORDERED: normal saline 1000ML IV soln IVB ONE (09:00)
--- NOTE | 2022-09-25 09:15 | NUR ---
rn unable to scan ns ord as 1000 to give 500. rn pulled 500 bag.
[2022-09-25] MEDS ORDERED: iohexol 350MG/ML 100ml bottle IV ONE (09:19)
--- NOTE | 2022-09-25 09:49 | NUR ---
urine sent to lab. pt taken to ct.
[2022-09-25] MEDS ORDERED: MESSAGE TO NURSING PO SCH (10:00)
[2022-09-25 10:34] LABS: CLARITY,URINE CLEAR (Clear); COLOR,URINE YELLOW (Yellow); GLUCOSE, URINE NEGATIVE (Neg); KETONES,URINE NEGATIVE (Neg); LEUKOCYTE ESTERASE ,URINE NEGATIVE (Neg); NITRITES, URINE NEGATIVE (Neg); OCCULT BLOOD,URINE NEGATIVE (Neg); PROTEIN,URINE NEGATIVE (Neg); UROBILINOGEN,URINE 0.2 E.U/dL (0.2-1.0)
[2022-09-25 10:35] LABS: UA COLLECTION TYPE CLN CATCH MIDSTREAM
[2022-09-25] MEDS ORDERED: CefTRIAXone 2gm/D5W 50ml BAG 50 ML IV ONE (10:50)
[2022-09-25] MEDS ORDERED: AMOX-580 PO (11:09)
[2022-09-25] MEDS ORDERED: PRED20TA PO (11:09)
[2022-09-25] MEDS ORDERED: azithromycin 250mg tablet PO ONE (11:10)
[2022-09-25 11:59] VITALS: BP 168/82
== END 2022-09-25 12:02 | disposition home or self-care (01) ==
LOC: ER 06:37
DX: R09.1 Pleurisy (principal); R07.89 Other chest pain; J44.9 Chronic obstructive pulmonary disease, unspecified; E11.9 Type 2 diabetes mellitus without complications; Z88.7 Allergy status to serum and vaccine; Z88.8 Allergy status to other drugs, medicaments and biological substances; Z90.49 Acquired absence of other specified parts of digestive tract; Z98.890 Other specified postprocedural states
CPT/HCPCS: 36415; 71045; 71275; 80053; 81003; 82948; 83735; 83880; 84145; 84484; 85025; 93005; 96365; 96366; 96367; 96375; 99285; J0696; J2930; J3475; J3490; J7030; J7040; Q9967

== ENCOUNTER 2024-05-31 10:01 | Emergency (ER) | payer BC, MEDICAID ==
[~2024-05-31] VITALS: Ht 165.1 cm; Wt 78.0 kg
[2024-05-31] MEDS: HYDROmorphone 1 mg/ml syringe IV ONE ×2 (10:37→14:53)
[2024-05-31 10:54] LABS: BASOPHILS # (AUTO) 0.1 X10'3 (0-0.2); BASOPHILS % (AUTO) 0.5 % (0-1); EOSINOPHILS # (AUTO) 0.4 X10'3 (0-0.9); HEMATOCRIT 36.8 % (35.0-45.0); HEMOGLOBIN 12.3 g/dl (12.0-16.0); LYMPHOCYTES # (AUTO) 2.7 X10'3 (1.1-4.8); LYMPHOCYTES % (AUTO) 21.7 % (21-51); MEAN CORPUSCULAR HEMOGLOBIN 30.2 PG (27.0-31.0); MEAN CORPUSCULAR HGB CONC 33.5 g/dL (33.0-36.5); MEAN CORPUSCULAR VOLUME 90.1 FL (78-98); MEAN PLATELET VOLUME 7.9 FL (7.4-10.4); MONOCYTES # (AUTO) 1.7 X10'3 (0-0.9); NEUTROPHILS # (AUTO) 7.5 X10'3 (1.8-7.7); NEUTROPHILS % (AUTO) 60.8 % (42-75); PLATELET COUNT 397 X10'3 (140-440); RED BLOOD COUNT 4.09 X10'6 (4.20-5.60); RED CELL DISTRIBUTION WIDTH 14.4 % (11.5-14.5); WHITE BLOOD COUNT 12.4 X10'3 (4.5-11.0)
[2024-05-31 11:17] LABS: APTT 25 SECONDS (22-32); PROTHROMBIN TIME 10.8 SECONDS (9.0-12.0)
[2024-05-31 11:40] LABS: ALANINE AMINOTRANSFERASE 22 U/L (12-78); ALBUMIN 3.3 G/DL (3.4-5.0); ALBUMIN/GLOBULIN RATIO 0.9 (1.1-1.5); ALKALINE PHOSPHATASE 76 IU/L (46-116); ANION GAP 9 (8-16); ASPARTATE AMINO TRANSFERASE 15 U/L (10-37); BILIRUBIN,TOTAL 0.4 MG/DL (0.1-1.0); BLOOD UREA NITROGEN 17 MG/DL (7-18); BUN/CREATININE RATIO 18.3 (10.0-20.0); CALCIUM 9.5 MG/DL (8.5-10.1); CHLORIDE 101 MMOL/L (99-107); CREATININE 0.93 MG/DL (0.40-0.90); GLUCOSE 94 MG/DL (70-104); SODIUM 137 MMOL/L (135-145); TOTAL CARBON DIOXIDE 27.2 MMOL/L (24-32); TOTAL PROTEIN 6.9 G/DL (6.4-8.2); eCRCL 41 ML/MIN; eGFR 58 ML/MIN
[2024-05-31 11:53] LABS: BILIRUBIN,DIRECT 0.1 MG/DL (0-0.3)
[2024-05-31 15:30] VITALS: BP 108/90; PULSE 56; RESP 16; O2SAT 97
[2024-05-31 17:31] VITALS: TEMP 98
== END 2024-05-31 17:33 | disposition short-term general hospital (02) ==
LOC: ER 10:02
DX: S72.001A Fracture of unspecified part of neck of right femur, initial encounter for closed fracture (principal); J44.9 Chronic obstructive pulmonary disease, unspecified; J45.909 Unspecified asthma, uncomplicated; E11.9 Type 2 diabetes mellitus without complications; Z88.7 Allergy status to serum and vaccine; Z90.49 Acquired absence of other specified parts of digestive tract; Z88.1 Allergy status to other antibiotic agents; Z79.82 Long term (current) use of aspirin; Z79.84 Long term (current) use of oral hypoglycemic drugs; Z79.899 Other long term (current) drug therapy; W18.30XA Fall on same level, unspecified, initial encounter; Y93.89 Activity, other specified; Y92.89 Other specified places as the place of occurrence of the external cause; Y99.8 Other external cause status
CPT/HCPCS: 36415; 71045; 74176; 80048; 80076; 83735; 84484; 85025; 85610; 85730; 86885; 86900; 86901; 93005; 96374; 96376; 99291; J1171